=== PATIENT | female | born 1975 | race Caucasian/White ===

== ENCOUNTER 2018-07-27 04:53 | Emergency (ER) | payer BC, OTHER ==
[2018-07-27] MEDS ORDERED: Phenergan 25 MG INJ IV ONE ×2 (05:35→07:40)
[2018-07-27] MEDS ORDERED: Sodium Chloride 0.9% 1000 ML 1,000 ML IV STA (05:35)
[2018-07-27] MEDS ORDERED: MORPHINE SULFATE 4 MG INJ IV ONE (05:35)
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
[2018-07-27] MEDS ORDERED: Phenergan 25 MG INJ ONE ×2 (05:42→07:45)
[2018-07-27] MEDS ORDERED: Sodium Chloride 0.9% 1000 ML 1,000 ML ONE (05:42)
[2018-07-27] MEDS ORDERED: MORPHINE SULFATE 4 MG INJ ONE (05:42)
[2018-07-27 06:01] LABS: BASOPHIL % 0.2 % (0.0-0.4); Basophil (Absolute #) 0.03 (0-0.4); Eosinophil % 1.9 % (0.00-5.0); Eosinophil (Absolute #) 0.24 (0-0.5); Granulocyte Absolute (ANC) 10.48 (1.4-6.9); Granulocytes % 83.7 % (36.0-66.0); Hematocrit 40.4 % (35-47); Hemoglobin 12.7 gm/dl (12.0-16.0); Lymphocyte (Absolute #) 1.04 (1.0-4.6); Lymphocytes % 8.3 % (24.0-44.0); Mean Cell Volume 88.8 fl (78-100); Mean Corpuscular Hemoglobin 27.9 pg (26-32); Mean Corpuscular Hgb Concent. 31.4 g/dl (32-36); Mean Platelet Volume 12.5 fl (6-9.5); Monocyte (Absolute #) 0.74 (0.0-1.3); Monocytes % 5.9 % (0.0-12.0); Platelet Count 240 K/mm3 (150-450); Red Blood Count 4.55 M/mm3 (4.1-5.4); Red Cell Distribution Width 15.1 % (11.5-14.0); White Blood Count 12.5 K/mm3 (4.0-10.5)
[2018-07-27 06:16] LABS: ALBUMIN 4.8 g/dL (3.5-5.0); ALKALINE PHOSPHATASE 89 U/L (38-126); AMYLASE 81 U/L (30-110); ANION GAP 18.6 MEQ/L (5-15); BLOOD UREA NITROGEN 21 mg/dL (7-17); CHLORIDE 103 mmol/L (98-107); Calcium 9.7 mg/dL (8.4-10.2); Carbon Dioxide 24 mmol/L (22-30); Creatinine 1 0.86 mg/dL (0.52-1.04); Glucose 187 mg/dL (74-106); LIPASE 117 U/L (23-300); Potassium 3.9 mmol/L (3.5-5.1); SGOT/AST 35 U/L (14-36); SGPT/ALT 22 U/L (0-35); SODIUM 141 mmol/L (137-145); Total Protein 8.9 g/dL (6.3-8.2)
[2018-07-27 06:34] LABS: Appearance SLIGHTLY CLOUDY (CLEAR); Bilirubin NEGATIVE (NEGATIVE); Blood MODERATE Ery/ul (0-5); Glucose NEGATIVE (NEGATIVE); Ketones NEGATIVE (NEGATIVE); Leukocyte Esterase MODERATE (NEGATIVE); Nitrite NEGATIVE (NEGATIVE); Protein,Urine Dip NEGATIVE (Negative); Urobilinogen NEGATIVE mg/dL (0-1)
[2018-07-27] MEDS ORDERED: ROCEPHIN 1 Gm-D5w 50 ml Bag** 1 G/50 ML IVPB IV STA (07:38)
[2018-07-27] MEDS ORDERED: MORPHINE SULFATE 10 MG/ML IV ONE (07:40)
[2018-07-27] MEDS ORDERED: MORPHINE SULFATE 10 MG/ML ONE (07:46)
[2018-07-27] MEDS ORDERED: ROCEPHIN 1 Gm-D5w 50 ml Bag** 1 G/50 ML IVPB IV ONE (07:47)
--- NOTE | 2018-07-27 08:45 | XRAY ---
Indication: Right flank pain. Elevated WBC. History renal stones. Multiple contiguous axial images obtained through the abdomen and pelvis without contrast using renal stone protocol. Comparison: August 20, 2014. Lung bases demonstrates minimal bibasilar atelectasis/scarring and tiny right lower lobe calcified granuloma. No infiltrate or effusion. Heart is not enlarged. Right kidney demonstrates 2 stable nonobstructing calculi, largest 13 mm. Left kidney remains atrophic with stable 2 nonobstructing calculi, largest 13 mm. Also stable 1.5 cm left upper pole exophytic cyst. Noncontrasted stomach and bowel loops appear nonobstructed. Normal appendix. There is now mild diffuse scattered colonic fecal debris throughout. Again scattered colonic diverticulosis without diverticulitis. No free fluid/air. Stable diffuse fatty liver and bilateral adrenal adenomas. Remaining liver, gallbladder, pancreas, spleen, adrenal glands, kidneys, ureters, bladder, uterus, and aorta appear unremarkable for noncontrast exam. Osseous structures intact again with mild degenerative changes throughout the spine. Impression: 1. Stable nonobstructing bilateral renal calculi, left renal atrophy, and left renal cyst. 2. Stable fatty liver and bilateral adrenal adenomas. 3. Remaining CT abdomen/pelvis without contrast exam is negative. CT DI 28.13
[2018-07-27 09:07] VITALS: BP 103/75; PULSE 70; O2SAT 98
== END 2018-07-27 08:55 | disposition home or self-care (01) ==
LOC: ED 04:53
DX: N39.0 Urinary tract infection, site not specified (principal); R10.31 Right lower quadrant pain; Z79.899 Other long term (current) drug therapy; N20.0 Calculus of kidney
CPT/HCPCS: 36415; 74176; 80053; 81001; 82150; 83690; 84703; 85025; 87086; 96360; 96365; 96374; 96375; 96376; 99284; J0696; J2270; J2550